=== PATIENT | male | born 1995 | race Caucasian/White ===

== ENCOUNTER 2018-08-15 10:32 | Emergency (ER) | payer OTHER ==
[~2018-08-15] VITALS: Ht 172.7 cm; Wt 97.7 kg
[2018-08-15 10:33] VITALS: BP 145/80
[2018-08-15] MEDS ORDERED: IBUP80TA PO (10:37)
[2018-08-15] MEDS ORDERED: ONDANSETRON 4 MG ORAL DISINTEGRATING TAB (Q0162 PER 1MG) PO ONE (11:15)
[2018-08-15] MEDS ORDERED: ONDA4TAB6 PO (11:36)
== END 2018-08-15 11:43 | disposition home or self-care (01) ==
LOC: M ED 10:32
DX: K52.9 Noninfective gastroenteritis and colitis, unspecified (principal)
CPT/HCPCS: 99282; Q0162